=== PATIENT | male | born 1940 | race Hispanic/Latino ===

== ENCOUNTER 2021-10-12 06:02 | Day surgery (SDC) | payer MEDICARE ==
[2021-10-12] MEDS ORDERED: SODIUM CHLORIDE 0.9% 1000 ML 1,000 ML IV SCH (06:30)
[2021-10-12] MEDS ORDERED: BACTERIOSTATIC SODIUM CHLORIDE 0.9% 30 ML VIAL INFILTRATI ONE (06:37)
[2021-10-12 07:07] LABS: Hematocrit 31.1 % (35.5-45.6); Mean Corpuscular HGB Conc 32 % (32-34); Mean Corpuscular Volume 87 fl (84-94); Platelet Count 132 K/mm3 (140-440); Red Cell Distribution Width 18.6 % (13.2-15.2)
[2021-10-12 07:17] LABS: Calcium 9.1 mg/dL (8.4-10.2)
[2021-10-12] MEDS ORDERED: BUPIVACAINE/PF (0.5%) 5 MG/1 ML 30 ML VIAL INFILTRATI ONE ×2 (07:27→07:32)
[2021-10-12] MEDS ORDERED: MIDAZOLAM 2 MG/2 ML INJ ONE (07:28)
[2021-10-12] MEDS ORDERED: fentaNYL 100 MCG/2 ML INJ ONE (07:28)
[2021-10-12] MEDS ORDERED: HEPARIN 10,000 UNITS/10 ML VIAL ONE (07:32)
[2021-10-12] MEDS ORDERED: SODIUM CHLORIDE 0.9% 500 ML 500 ML ONE (07:32)
--- NOTE | 2021-10-12 07:38 | Anesthesia Consultation ---
Anesthesia Consult and Med Hx Date of service: 10/12/21 - Pulmonary Exam CTA: Yes - Cardiac Exam Cardiac Exam: RRR - Pre-Operative Health Status ASA Pre-Surgery Classification: ASA4 Proposed Anesthetic Plan: MAC Nerve Block: supraclavicular - Pulmonary Hx Smoking: Yes (FORMER) Hx Sleep Apnea: Yes (+ CPAP) - Cardiovascular System Hx Hypertension: Yes (HLD) Hx Coronary Artery Disease: Yes (CABG 2010) Hx Heart Attack/AMI: Yes (3 stents - 10-15 years ago) Hx Peripheral Vascular Disease: Yes (arthrosclerosis with intermittent claudication BLE) - Central Nervous System Hx Seizures: No CVA: No - Gastrointestinal Hx Gastroesophageal Reflux Disease: No - Endocrine Hx End Stage Renal Disease: Yes (has not started HD) Hx Liver Disease: No Hx Non-Insulin Dependent Diabetes: No Hx Thyroid Disease: No (hyperparathyroidism, Addisons disease, Gout) - Other Systems Hx Alcohol Use: Yes (FORMER) - Additional Comments Anesthesia Medical History Comments: no hx of anesthetic complications.
--- NOTE | 2021-10-12 07:40 | Anesthesia Day of Surgery ---
Anesthesia Day of Surgery - Day of Surgery Patient Examined: Yes Patient H&P Reviewed: Yes Patient is NPO: Yes
[2021-10-12] MEDS ORDERED: propofoL 200 MG/20 ML VIAL IV ONE ×3 (08:02→09:08)
[2021-10-12] MEDS ORDERED: SODIUM CHLORIDE 0.9% 500 ML IVPB IRRIGATION ONE (08:59)
[2021-10-12] MEDS ORDERED: HEPARIN 10,000 UNITS/10 ML VIAL IV ONE (08:59)
[2021-10-12] MEDS ORDERED: ONDANSETRON 4 MG/2 ML INJ ONE (09:29)
--- NOTE | 2021-10-12 09:33 | Short Stay Summary ---
Short Stay Documentation Date of service: 10/12/21 Narrative H&P: See H&P - History H&P: obtained from office - Allergies and Medications Current Medications: Allergies Penicillins Allergy (Verified 10/04/21 14:37) Unknown Home Medications Medication Instructions Recorded Confirmed Last Taken Type Aspirin [[place] Aspirin EC] 81 mg PO 10/04/21 10/11/21 History Atorvastatin Calcium [Lipitor] 80 mg PO 10/04/21 10/11/21 History Clopidogrel [Plavix] 75 mg PO QDAY 10/04/21 10/04/21 10/12/21 05:00 History Doxazosin [Cardura] 4 mg PO BID 10/04/21 10/04/21 10/12/21 05:00 History Furosemide [Lasix] 20 mg PO BID 10/04/21 10/04/21 10/11/21 History Hydralazine HCl 50 mg PO TID 10/04/21 10/04/21 10/12/21 05:00 History Hydrocortisone [Cortef TAB] 10/04/21 10/12/21 05:00 History Isosorbide Mononitrate [Isosorbide 60 mg PO 10/04/21 10/11/21 History Mononitrate ER] Labetalol HCl [Labetalol 300mg TAB] 300 mg PO BID 10/04/21 10/04/21 10/12/21 05:00 History Levothyroxine Sodium [Euthyrox] 100 mcg PO 10/04/21 10/12/21 05:00 History NIFEdipine [Nifedipine ER] 90 mg PO 10/04/21 10/12/21 05:00 History Nitroglycerin [Nitrostat] 0.4 mg SL Q5M PRN 10/04/21 10/04/21 Unknown History allopurinoL [Zyloprim] 100 mg PO BID 10/04/21 10/04/21 10/11/21 History Active Medications Clindamycin HCl (Cleocin 900 Mg/50 Ml) 900 mg in 50 mls @ 100 mls/hr IV PREOP NR; Protocol Stop: 10/12/21 23:00 Sodium Chloride (Nacl 0.9% 1000 Ml) 1,000 mls @ 42 mls/hr IV DIRECT JORGE L Last Admin: 10/12/21 06:45 Dose: 42 mls/hr - Brief post op/procedure progress note Date of procedure: 10/12/21 Pre-op diagnosis: Chronic Renal Sufficiency Post-op diagnosis: same Procedure: Creation of Left Brachiocephalic Arteriovenous Fistula Anesthesia: MAC, regional Surgeon: JANNY CROUCH Estimated blood loss: minimal Pathology: none Condition: stable - Disposition Condition at discharge: Good Disposition: 01 HOME / SELF CARE / HOMELESS Short Stay Discharge Plan Activity: other (No heavy lifting left arm for 2 weeks. Use stress ball as often as possible with left hand.) Wound: open to air, keep clean and dry, other (Okay to shower and wash the left arm incision with soap and water but do not soak in water for 2 weeks.) Follow up with: JANNY CROUCH MD [Staff Physician] - 14 Days Prescriptions: HYDROcodone/APAP 5-325 [[place] 5/325] 1 each PO Q4HR PRN #30 tablet PRN Reason: Pain
--- NOTE | 2021-10-12 09:35 | Operative Report ---
Operative Report Operative Report: Date of procedure: 10/12/2021 Pre-operative diagnosis: Chronic Renal Insufficiency Post-operative diagnosis: Same Procedure(s): Creation of Left Brachial Artery to Cephalic Vein Arteriovenous Fistula Surgeon: Claudio Goldberg MD Hat Brusher Machine: None Anesthesia: Regional/MAC EBL: Minimal Counts: Correct Complications: None Condition: Stable Findings: Successful creation of left brachiocephalic arteriovenous fistula with palpable thrill and palpable radial pulse at the completion of the case. Specimen: None Indications: The patient is an 80-year-old male with a history of chronic renal sufficiency who was not yet initiated hemodialysis however it is anticipated that he will will progress to end-stage renal disease with the need for dialysis in the near future. He is in need of permanent dialysis access to avoid placement of a permacath in the future. His work-up revealed he had adequate vein for creation of a left arm arteriovenous fistula. He was given the risk, benefits, and alternative procedures and consented to the procedure. Description of Procedure: The patient had a regional block of the patient's left arm was performed in the preoperative area prior to being transported to the operating room. Once the regional block was performed the patient was transported to the operating room and adequate sedation was given. When the patient was sedated a timeout was performed and the patient's left arm was then prepped and draped in normal sterile fashion. A transverse incision was then made and carried down to the cephalic vein using sharp dissection. The vein was dissected out both proximally and distally and suture ligated and divided distally. I flushed the vein with heparinized saline and flow was controlled with a bulldog clamp. I then dissected out the brachial artery through this incision circumferentially both proximal and distal and controlled the artery with vessel loops. I systemically heparinized the patient with 3000 units of heparin IV and used angled DeBakey clamps to control flow through the artery. I created an arter iotomy using an 11 blade and Dempsey scissors. I created an end to side anastomosis between the cephalic vein and brachial artery using a 6-0 Prolene in running fashion. Prior to completing the anastomosis I flashed the artery both proximally and distally and then flushed the anastomosis with heparinized saline to remove any debris. I then completed the anastomosis and removed all clamps allowing flow into the fistula which had an adequate thrill. I achieved hemostasis with a combination of Quick Clot and electrocautery. Once hemostasis had been achieved I closed the wound in 2 layers using a 3-0 Vicryl in a running fashion in the deep dermal layer and a 4-0 Monocryl in running fashion in the subcuticular layer. I then dressed the wound with Dermabond. The patient tolerated the procedure well. All sponge, needle, and instrument counts were correct. The patient was taken to the recovery area in stable condition.
--- NOTE | 2021-10-12 10:26 | Post Anesthesia Evaluation ---
- Post Anesthesia Evaluation Patient Participated: Yes Airway Patent: Yes Stable Respiratory Function: Yes Nausea/Vomiting: No Temp > 96.8F: Yes Pain Manageable: Yes Adequeate Hydration: Yes Anesthesia Complications: No
[2021-10-12 11:52] VITALS: BP 117/40
== END 2021-10-12 11:10 | disposition home or self-care (01) ==
LOC: OR 06:02
PROVIDERS: ATTEND Surgery Vascular Surgery
DX: I12.0 Hypertensive chronic kidney disease with stage 5 chronic kidney disease or end stage renal disease (principal); N18.6 End stage renal disease; I25.10 Atherosclerotic heart disease of native coronary artery without angina pectoris; I70.213 Atherosclerosis of native arteries of extremities with intermittent claudication, bilateral legs; E78.00 Pure hypercholesterolemia, unspecified; G47.33 Obstructive sleep apnea (adult) (pediatric); M10.9 Gout, unspecified; Z87.891 Personal history of nicotine dependence; Z79.899 Other long term (current) drug therapy; Z98.890 Other specified postprocedural states; Z98.41 Cataract extraction status, right eye; Z98.42 Cataract extraction status, left eye; Z95.1 Presence of aortocoronary bypass graft; Z72.89 Other problems related to lifestyle
CPT/HCPCS: 36415; 36821; 64415; 80048; 85027; J1644; J2250; J2405; J2704; J3010; J3490; J7030; J7040; J7502